=== PATIENT | female | born 1975 | race Caucasian/White ===

== ENCOUNTER 2020-10-12 16:28 | Emergency (ER) | payer MEDICAID ==
[~2020-10-12] VITALS: Ht 157.5 cm; Wt 59.0 kg
[2020-10-12 19:35] VITALS: BP 121/82
== END 2020-10-12 19:35 | disposition home or self-care (01) ==
LOC: ER 16:28
DX: R06.00 Dyspnea, unspecified (principal); Z91.013 Allergy to seafood; T50.B95A Adverse effect of other viral vaccines, initial encounter; Y92.018 Other place in single-family (private) house as the place of occurrence of the external cause
CPT/HCPCS: 99281

== ENCOUNTER 2022-11-27 14:26 | Emergency (ER) | payer MEDICAID ==
[~2022-11-27] VITALS: Ht 165.1 cm; Wt 75.0 kg
[2022-11-27 14:36] VITALS: BP 122/82; PULSE 80; RESP 18; TEMP 98.6; O2SAT 100
[2022-11-27] MEDS ORDERED: TETRACAINE 0.5% OPHTH DROPS 4ML BOTHEYE ONE (15:30)
[2022-11-27] MEDS ORDERED: FLUORESCEIN SODIUM 1MG/STRIP EACHEYE ONE (15:30)
[2022-11-27] MEDS ORDERED: LORA10CA MT (16:36)
== END 2022-11-27 16:53 | disposition home or self-care (01) ==
LOC: ER 15:42
DX: H10.13 Acute atopic conjunctivitis, bilateral (principal)
CPT/HCPCS: 99282